=== PATIENT | male | born 1955 | race Caucasian/White ===

== ENCOUNTER 2016-08-22 05:43 | Emergency (ER) | payer BC ==
[~2016-08-22 05:43] MED LIST: ALLEGRA; ALLERGY SHOT; DICLOFENAC; FLONASE 0.05% N16 G1; LISINOPRIL PO
[2016-08-22] MEDS ORDERED: LIPITOR (05:52)
[2016-08-22] MEDS ORDERED: ULTRAM (05:52)
== END 2016-08-22 06:34 | disposition home or self-care (01) ==
LOC: SED 05:43
DX: K64.9 Unspecified hemorrhoids (principal); I10 Essential (primary) hypertension; Z98.890 Other specified postprocedural states; Z79.899 Other long term (current) drug therapy
CPT/HCPCS: 99282